=== PATIENT | male | born 1975 | race Caucasian/White ===

== ENCOUNTER 2016-11-22 03:30 | Observation (INO) | payer OTHER ==
[~2016-11-22] VITALS: Ht 185.4 cm; Wt 77.4 kg
[~2016-11-22 03:30] MED LIST: AMOX TR-K CLV1 EAC4 PO; ASPIRIN325 MG PO; BENZONATATE100 MG PO; CEFUROXIME500 MG PO; FLEXERIL10 MG PO; KEFLEX500 MG PO; LIDODERM 5% P1 PATCH TD; NAPROSYN500 MG PO; NAPROXEN500 MG PO; PEN-VEE K,VEET500 MG PO; PERCOCET 5/31 TABLET PO; PREDNISONE20 MG PO; PROAIR HFA8.5 GM IH; SYMBICORT60 INHALAT IH; TORADOL10 MG PO; TRAMADOL HCL50 MG PO; TYLENOL REGULA325 MG PO; ULTRAM50 MG PO; VENTOLIN HFA18 GM IH; ZITHROMAX250 MG PO; ZYRTEC10 M3 PO
[2016-11-22 03:56] LABS: HEMATOCRIT 45.3 % (38.0-50.0); MCHC 35.8 G/DL (30.0-36.0); MCV 92.3 FL (86-99); MEAN PLAT.VOLUME 11.1 uM^3 (9.0-12.4); PLATELET COUNT 186 K/uL (156-360); RBC DIS.WIDTH-CV 13.2 % (11.8-14.6); RBC DIS.WIDTH-SD 44.8 % (39-53); RED BLOOD COUNT 4.91 M/uL (4.00-5.50); WHITE BLOOD COUNT 8.5 K/uL (4.1-10.2)
[2016-11-22 04:08] LABS: CHLORIDE 107 mEq/L (99-109); POTASSIUM 3.7 mEq/L (3.7-5.4); SODIUM 140 mEq/L (136-147)
[2016-11-22 04:11] LABS: ANION GAP 11 MEQ/L (2-14)
[2016-11-22 04:12] LABS: TOTAL BILIRUBIN 1.7 mg/dL (0.0-1.0)
[2016-11-22 04:13] LABS: ALKALINE PHOSPHATASE 82 IU/L (3-129)
[2016-11-22 04:14] LABS: GFR ESTIMATE (CALCULATED) > 59 mL/min/
[2016-11-22 04:15] LABS: UREA NITROGEN (BUN) 11 mg/dL (9-23)
[2016-11-22 04:20] LABS: TROP-I INTERPRETATION NEGATIVE; TROPONIN-I < 0.01 ng/mL (0.0-0.30)
[2016-11-22 04:43] LABS: GLUCOSE 88 mg/dL (70-99)
[2016-11-22 06:24] VITALS: BP 126/79
[2016-11-22 10:08] VITALS: BP 102/71
[2016-11-22] MEDS ORDERED: NITROSTAT0.4 MG SL (10:14)
[2016-11-22] MEDS ORDERED: ASPIR-LOW81 MG PO (10:14)
[2016-11-22 10:34] LABS: TROP-I INTERPRETATION NEGATIVE; TROPONIN-I < 0.01 ng/mL (0.0-0.30)
[2016-11-22 11:01] LABS: SAMPLE HEMOLYSIS CHECK 0; SAMPLE ICTERIC CHECK 0; SAMPLE LIPEMIA CHECK 0
[2016-11-22 11:07] LABS: HDL CHOLESTEROL 42 MG/DL (Desirable>=40); LDL CHOLESTEROL 116 mg/dL (Desirable<100); NON-HDL CHOLESTEROL 137 mg/dL (Desirable<160); TOTAL CHOLESTEROL 179 mg/dL (Desirable<200); TRIGLYCERIDES 106 MG/DL (Normal: <150)
[2016-11-22 11:40] VITALS: BP 106/63
[2016-11-22 15:58] VITALS: BP 109/65
[2016-11-22 16:43] LABS: TROP-I INTERPRETATION NEGATIVE; TROPONIN-I < 0.01 ng/mL (0.0-0.30)
== END 2016-11-22 16:58 | disposition home or self-care (01) ==
LOC: EME 03:30 → 5WEST 05:21 → EDOF 05:21 → 5WEST 06:10
PROVIDERS: Nurse Practitioner Adult Health; Physician Assistant
DX: R07.2 Precordial pain (principal); J44.9 Chronic obstructive pulmonary disease, unspecified; F17.200 Nicotine dependence, unspecified, uncomplicated; F31.9 Bipolar disorder, unspecified
CPT/HCPCS: 71020; 71275; 80053; 80061; 84484; 85027; 93005; 94640; 99202; 99281; 99285; G0378

== ENCOUNTER 2017-01-21 05:34 | Emergency (ER) | payer OTHER ==
[~2017-01-21] VITALS: Ht 188 cm; Wt 79.0 kg
[~2017-01-21 05:34] MED LIST changes: +ASPIR-LOW81 MG PO; +NITROSTAT0.4 MG SL
[2017-01-21 06:43] LABS: MCH 32.3 PG (29.0-34.0); MCHC 35.7 G/DL (30.0-36.0); MCV 90.7 FL (86-99); MEAN PLAT.VOLUME 11.3 uM^3 (9.0-12.4); PLATELET COUNT 207 K/uL (156-360); RBC DIS.WIDTH-SD 43.1 % (39-53); RED BLOOD COUNT 5.07 M/uL (4.00-5.50)
[2017-01-21 06:57] LABS: CHLORIDE 108 mEq/L (99-109); POTASSIUM 3.7 mEq/L (3.7-5.4); SODIUM 142 mEq/L (136-147)
[2017-01-21 06:58] LABS: GLUCOSE 81 mg/dL (70-99)
[2017-01-21 07:00] LABS: ANION GAP 13 MEQ/L (2-14)
[2017-01-21 07:02] LABS: GFR ESTIMATE (CALCULATED) > 59 mL/min/
[2017-01-21 07:03] LABS: UREA NITROGEN (BUN) 11 mg/dL (9-23)
[2017-01-21 07:05] LABS: TROP-I INTERPRETATION NEGATIVE; TROPONIN-I < 0.01 ng/mL (0.0-0.30)
[2017-01-21] MEDS ORDERED: ROBITUSSIN AC,T10 ML PO (07:33)
[2017-01-21] MEDS ORDERED: ZITHROMAX Z-PA250 MG PO (07:33)
[2017-01-21 08:16] VITALS: BP 104/62
== END 2017-01-21 07:55 | disposition home or self-care (01) ==
LOC: EME 05:34
DX: J44.0 Chronic obstructive pulmonary disease with (acute) lower respiratory infection (principal); J20.9 Acute bronchitis, unspecified; F17.200 Nicotine dependence, unspecified, uncomplicated
CPT/HCPCS: 71020; 80048; 84484; 85027; 93005; 99281; 99283

== ENCOUNTER 2017-08-26 23:42 | Emergency (ER) | payer OTHER ==
[~2017-08-26] VITALS: Ht 180.3 cm; Wt 81.6 kg
[~2017-08-26 23:42] MED LIST changes: +ROBITUSSIN AC,T10 ML PO; +ZITHROMAX Z-PA250 MG PO
[2017-08-27 00:28] LABS: HEMATOCRIT 41.9 % (38.0-50.0); HEMOGLOBIN 15.3 G/DL (12.5-16.6); MCH 32.9 PG (29.0-34.0); MCHC 36.5 G/DL (30.0-36.0); MCV 90.1 FL (86-99); PLATELET COUNT 167 K/uL (156-360); RBC DIS.WIDTH-CV 13.5 % (11.8-14.6); RBC DIS.WIDTH-SD 44.6 % (39-53); RED BLOOD COUNT 4.65 M/uL (4.00-5.50); WHITE BLOOD COUNT 7.4 K/uL (4.1-10.2)
[2017-08-27 00:38] LABS: CHLORIDE 109 mEq/L (99-109); POTASSIUM 3.4 mEq/L (3.7-5.4); SODIUM 143 mEq/L (136-147)
[2017-08-27 00:40] LABS: GLUCOSE 83 mg/dL (70-99)
[2017-08-27 00:44] LABS: CREATININE 0.8 mg/dL (0.6-1.3); GFR ESTIMATE (CALCULATED) > 59 mL/min/ (58.99-99999)
[2017-08-27 00:45] LABS: UREA NITROGEN (BUN) 14 mg/dL (9-23)
[2017-08-27 00:48] LABS: TROP-I INTERPRETATION NEGATIVE; TROPONIN-I < 0.01 ng/mL (0.0-0.30)
[2017-08-27 01:22] LABS: D-DIMER ELISA < 150.00 ng/mLDDU (<230)
[2017-08-27] MEDS ORDERED: PREDNISONE50 MG PO (02:18)
[2017-08-27] MEDS ORDERED: TORADOL10 MG PO (02:18)
[2017-08-27] MEDS ORDERED: HYCODAN SYRUP480 ML PO (02:18)
[2017-08-27 02:48] VITALS: BP 114/73
== END 2017-08-27 02:51 | disposition home or self-care (01) ==
LOC: EME 23:42
DX: J20.9 Acute bronchitis, unspecified (principal); J44.0 Chronic obstructive pulmonary disease with (acute) lower respiratory infection; F17.200 Nicotine dependence, unspecified, uncomplicated
CPT/HCPCS: 71046; 80048; 83880; 84484; 85027; 85379; 93005; 94640; 99281; 99285; J7512

== ENCOUNTER 2017-12-27 22:26 | Emergency (ER) | payer OTHER ==
[~2017-12-27] VITALS: Ht 185.4 cm; Wt 78.4 kg
[~2017-12-27 22:26] MED LIST changes: +HYCODAN SYRUP480 ML PO; +PREDNISONE50 MG PO
[2017-12-27 23:11] LABS: HEMOGLOBIN 14.9 G/DL (12.5-16.6); MCH 32.9 PG (29.0-34.0); MCHC 35.5 G/DL (30.0-36.0); MCV 92.7 FL (86-99); PLATELET COUNT 205 K/uL (156-360); RBC DIS.WIDTH-CV 13.8 % (11.8-14.6); RBC DIS.WIDTH-SD 46.9 % (39-53); RED BLOOD COUNT 4.53 M/uL (4.00-5.50); WHITE BLOOD COUNT 8.8 K/uL (4.1-10.2)
[2017-12-27 23:21] LABS: ALBUMIN 4.1 g/dL (3.2-4.8)
[2017-12-27 23:22] LABS: CHLORIDE 105 mEq/L (99-109); POTASSIUM 3.7 mEq/L (3.7-5.4); SODIUM 137 mEq/L (136-147)
[2017-12-27 23:24] LABS: GLUCOSE 77 mg/dL (70-99); TOTAL PROTEIN 6.8 g/dL (6.4-8.3)
[2017-12-27 23:26] LABS: TOTAL BILIRUBIN 1.3 mg/dL (0.0-1.0)
[2017-12-27 23:27] LABS: ALKALINE PHOSPHATASE 83 IU/L (3-129); GFR ESTIMATE (CALCULATED) > 59 mL/min/ (58.99-99999)
[2017-12-27 23:29] LABS: AST (GOT) 23 IU/L (2-34); UREA NITROGEN (BUN) 13 mg/dL (9-23)
[2017-12-27 23:30] LABS: ALT (GPT) 26 IU/L (3-49)
[2017-12-28 00:48] LABS: APPEARANCE CLEAR ((CLEAR)); BILIRUBIN NEGATIVE; BLOOD SMALL; COLOR STRAW ((YELLOW)); GLUCOSE (STRIP) NEGATIVE; KETONES NEGATIVE; LEUKOCYTES TRACE; NITRITE NEGATIVE; PROTEIN (STRIP) NEGATIVE; SPECIFIC GRAVITY 1.008 (1.000-1.030); UROBILINOGEN 0.2 MG/DL (0.2-1.0)
[2017-12-28 01:10] LABS: BACTERIA NONE SEEN /HPF; EPITHELIAL CELLS NONE SEEN /HPF; MUCUS NONE SEEN /LPF; RED BLOOD CELLS 0-5 /HPF (0-5); UCUL ADDED? NO; WHITE BLOOD CELLS 0-5 /HPF (0-5)
[2017-12-28] MEDS ORDERED: FLEXERIL10 MG PO (01:51)
[2017-12-28] MEDS ORDERED: PYRIDIUM100 MG PO (01:51)
[2017-12-28] MEDS ORDERED: CIPRO500 MG PO (01:51)
[2017-12-28 03:57] VITALS: BP 119/65
== END 2017-12-28 03:57 | disposition home or self-care (01) ==
LOC: EME 22:26
DX: N30.91 Cystitis, unspecified with hematuria (principal); N20.2 Calculus of kidney with calculus of ureter; S16.1XXA Strain of muscle, fascia and tendon at neck level, initial encounter; J44.9 Chronic obstructive pulmonary disease, unspecified; F17.200 Nicotine dependence, unspecified, uncomplicated; Z79.51 Long term (current) use of inhaled steroids; Z87.01 Personal history of pneumonia (recurrent); J30.89 Other allergic rhinitis; Z91.048 Other nonmedicinal substance allergy status
CPT/HCPCS: 80053; 81003; 85027